=== PATIENT | female | born 1955 | race Caucasian/White ===

== ENCOUNTER → 2016-08-28 | Outpatient (CLI) | payer BC ==
[2016-08-28 13:17] LABS: Basophils # (A) 0.2 k/uL (0-0.2); Basophils % (A) 1 %; CH 30.2; CHCM 33.9; Eosinophils # (A) 0.3 k/uL (0-0.7); Eosinophils % (A) 2 %; HCT 55.2 % (34.0-46.0); HDW 2.62; HGB 18.5 gm/dL (11.4-16.0); Luc # (Auto) 0.28; Luc % (Auto) 2; Lymphocytes # (A) 4.1 k/uL (1.0-4.8); Lymphocytes % (A) 27 %; MCH 30.1 pg (25.0-35.0); MCHC 33.6 g/dL (31.0-37.0); MCV 89.7 fL (80.0-100.0); Mean Platelet Volume 6.4; Monocytes # (A) 1.2 k/uL (0-1.0); Monocytes % (A) 8 %; Neutrophils # (A) 9.1 k/uL (1.3-7.7); Neutrophils % (A) 60 %; RBC 6.16 m/uL (3.80-5.40); RDW 12.6 % (11.5-15.5); WBC 15.2 k/uL (3.8-10.6); WBC (Perox) 13.87
[2016-08-28 13:22] LABS: Prothrombin Time 10.4 sec (9.0-12.0)
[2016-08-28 13:34] LABS: ALT 31 U/L (9-52); AST 24 U/L (14-36); Alkaline Phosphatase 110 U/L (38-126); Anion Gap 13 mmol/L; Blood Urea Nitrogen 17 mg/dL (7-17); Carbon Dioxide 27 mmol/L (22-30); Chloride 100 mmol/L (98-107); Glucose 150 mg/dL (74-99); Non-African American GFR(MDRD) >60 (>60 ml/min/1.73 sqM); Potassium 4.4 mmol/L (3.5-5.1); Sodium 140 mmol/L (137-145); Total Bilirubin 0.7 mg/dL (0.2-1.3); Total Protein 8.1 g/dL (6.3-8.2)
[2016-08-28 14:23] LABS: Hemoglobin A1C 6.8 % (4.2-6.1)
== END | disposition home or self-care (01) ==
LOC: LABPRL 12:43
PROVIDERS: ATTEND Orthopaedic Surgery
DX: Z01.812 Encounter for preprocedural laboratory examination (principal); E11.9 Type 2 diabetes mellitus without complications; M16.12 Unilateral primary osteoarthritis, left hip; Z01.818 Encounter for other preprocedural examination
CPT/HCPCS: 80053; 83036; 85025; 85610; 86850; 86900; 86901; 87070

== ENCOUNTER 2016-09-08 06:15 | Inpatient (IN) | payer BC ==
[2016-08-31 13:09] VITALS: BMI 42.0
--- NOTE | 2016-09-05 13:24 | HP ---
DATE OF ADMISSION: CHIEF COMPLAINT: Left hip pain. HISTORY OF PRESENT ILLNESS: The patient is a 61-year-old retired female who presents with progressive left hip pain for the past several years. She is having pain with any attempt at weight-bearing activities. She does use a cane. She has tried medications with only partial temporary relief. She notes the pain significantly limits her function and activities. PAST MEDICAL HISTORY: Significant for type 2 diabetes, hypertension, hypothyroidism, arthritis and obesity. PAST SURGICAL HISTORY: Significant for partial thyroidectomy, . CURRENT MEDICATIONS: 1. Aleve. 2. Januvia. 3. Levothyroxine. 4. Losartan. She denies drug allergies. FAMILY HISTORY: Significant for heart disease and cancer. SOCIAL HISTORY: Significant for previous tobacco use; however, she quit in 2004. Sixteen-point review of systems otherwise reviewed and is noncontributory. On examination, the patient is a well-developed, well-nourished female of endomorphic habitus. She is approximately 6 feet tall, 310 pounds. HEENT exam is nonfocal. Neck is supple. She is nontender about the lumbar spine. Her passive motion of the left hip is flexion 60 degrees, extension full. With the hip flexed, external rotation is 40 degrees, internal rotation is -20 degrees with pain. Clinically, she has 1 cm shortening of the left lower extremity compared to the right. She walks with an antalgic gait. Her distal neurovascular exam appears be intact in the left lower extremity. Previous x-rays of the left hip obtained in the office show severe hip osteoarthrosis with [id number] changes. IMPRESSION: 1. Left hip severe osteoarthrosis. 2. Increased body mass index. 3. Dkc-pxavazq-myssyxiem diabetes. RECOMMENDATIONS: I talked to the patient at length regarding her treatment options. At this point, she is quite symptomatic and limited because of pain related to her osteoarthrosis. She opts to proceed with surgery. We will plan to proceed with left total hip arthroplasty. We will institute DVT prophylaxis postoperatively. She understands she is at higher risk for complication because of her increased body mass index. She underwent preoperative medical evaluation by Dr. Colby.
[~2016-09-08 06:15] MED LIST: ACETAMINOPHEN TAB 500 MG TAB PO ONE; DEXAMETHASONE SOD PHOSPHATE 10 MG/ML 1 ML VIAL IV ONE; HYDROmorphone 1 MG/ML 1 ML SYRINGE IVP PRN; MELOXICAM 7.5 MG TAB PO ONE; ONDANSETRON 4 MG/2 ML VIAL IVP ONE; TRANEXAMIC ACID 1,000 MG in SODIUM CHLORIDE 0.9% 100 ML IVPB ONE; ceFAZolin 3 GM in SODIUM CHLORIDE 0.9% 100 ML IVPB ONE
[2016-09-08 07:24] LABS: Glucose,Whole Blood 145 mg/dL (75-99)
[2016-09-08] MEDS: LACTATED RINGERS 1,000 ML IV SCH ×2 (07:24→16:33)
[2016-09-08] MEDS ORDERED: MIDAZOLAM 2 MG/2 ML VIAL IV ONE (07:40)
[2016-09-08] MEDS ORDERED: MORPHINE SULFATE (PF) 0.3 MG/0.3 ML SYR ONE (07:59)
[2016-09-08] MEDS ORDERED: TRANEXAMIC ACID 1,000 MG/10 ML VIAL ONE (07:59)
[2016-09-08] MEDS ORDERED: fentaNYL (PF) 50 MCG/ML 2 ML AMP ONE (07:59)
[2016-09-08] MEDS ORDERED: SODIUM CHLORIDE 0.9% 100 ML BAG ONE (07:59)
[2016-09-08] MEDS ORDERED: PROPOFOL 10 MG/ML 20 ML VIAL IV ONE (07:59)
[2016-09-08] MEDS ORDERED: PHENYLEPHRINE-0.9% NACL SYG 1 MG/10 ML SYRINGE ONE (07:59)
[2016-09-08] MEDS ORDERED: MIDAZOLAM 2 MG/2 ML VIAL ONE (07:59)
[2016-09-08] MEDS ORDERED: ceFAZolin 3,000 MG in SODIUM CHLORIDE 0.9% IRRIGATIO 3,000 ML IRRIGATION ONE (08:36)
[2016-09-08] MEDS ORDERED: ONDANSETRON 4 MG/2 ML VIAL IVP PRN (09:54)
[2016-09-08] MEDS ORDERED: traMADol 50 MG TAB PO PRN (09:54)
[2016-09-08] MEDS ORDERED: MAGNESIUM HYDROXIDE 2,400 MG/10 ML CUP PO PRN (09:54)
[2016-09-08] MEDS ORDERED: NALOXONE 0.4 MG/ML 1 ML VIAL IV PRN ×2 (09:54→11:14)
[2016-09-08] MEDS ORDERED: HYDROcodone/APAP 5-325MG 1 EACH TAB PO PRN (09:54)
[2016-09-08] MEDS ORDERED: HYDROmorphone 1 MG/ML 1 ML SYRINGE IVP PRN ×2 (09:54)
--- NOTE | 2016-09-08 10:29 | P.OP ---
Date of Procedure: 09/08/16 Preoperative Diagnosis: Severe left hip osteoarthrosis Postoperative Diagnosis: Same Procedure(s) Performed: Left total hip arthroplasty/lateral approach Implants: Depuy Corail size 11 collared femoral stem, 36 mm +5 cobalt chrome femoral head , 56 mm acetabular shell, neutral polyethylene liner Anesthesia: spinal Surgeon: J Carlos Garay Animal Rides Manager #1: Donavan Cabrera Estimated Blood Loss (ml): 150 Pathology: other (Femoral head) Condition: stable Disposition: PACU Indications for Procedure: The patient is a 61-year-old female who presents with progressive left hip pain secondary to osteoarthrosis spite conservative treatment. A discussion of the risks and benefits of operative intervention versus continued conservative measures was made with the patient. She opted to proceed with surgery. Operative risks to include infection, neurovascular injury, blood clots, fracture, dislocation, leg length discrepancy, and possible need for subsequent procedures was discussed. She was instructed she was at higher risk for complications because of her increased body mass index. Informed consent was obtained. Operative Findings: As below Description of Procedure: The patient was brought to the operating room, and after induction of spinal anesthesia was placed in the lateral decubitus position. The bony prominences were appropriately padded. The pelvis was stabilized perpendicular to the floor with a pegboard. The left lower extremity was prepped and draped in normal fashion. Preoperative templating previously was performed to estimate component positioning and sizes. A longitudinal incision extending approximately 15 cm was then made centered over the greater trochanter extending superiorly to level ASIS and distally in line with the femoral shaft. The skin and subcutaneous tissues were divided sharply. Electrocautery was used for hemostasis. The fascia paula and gluteus vimal fascia was split in line with the skin incision. The muscle fibers were bluntly dissected proximally. A self-retaining retractor was placed. The anterior and posterior margins of the gluteus medius muscles identified in the anterior two thirds detached from the greater trochanter with electrocautery. The gluteus minimus tendon was identified and detached in a similar fashion. A wide capsulotomy was performed. The hip was gently dislocated. A femoral neck osteotomy was made at a 45 shaft with a sagittal saw approximately 1 1/2 cm above the level of the lesser trochanter. The head was then extracted. Attention was then paid towards preparing the acetabular. Retractors were placed anterior and posteriorly. Remaining labral and capsular tissue was debrided sharply clearly defining the acetabular margins. I began reaming with a 49 mm reamer taking care to initially medialize then reaming at 45 of abduction and 20 of anteversion. Sequential reaming is performed up to 55 mm. I was down to bleeding bony surface. A trial 56 mm acetabular shell was inserted in the same orientation and was fully seated. There was good rim fit and stability. The trial component was removed. The final component was inserted again at 45 of abduction and 20 of anteversion. There is good rim fit and stability. I did place one 6.5 mm x 30 mm cancellus screw for additional stability. A neutral polyethylene liner was then inserted. This was impacted. Care was taken to avoid any soft tissue interposition. Attention was then paid towards preparing the proximal femur. A box chisel was used to open the metaphyseal region. A canal finder was used to find the femoral canal. Sequential broaching was performed with the leg perpendicular to the floor in 15 of anteversion. I broached up to a size 11. There was good rotational stability. The standard neck along with a 56 mm +5 head was placed. The hip was gently reduced. It was taken through range of motion. It was stable in flexion and extension with internal and external rotation. I felt there is adequate zoroastrian of soft tissue tension. The hip was gently dislocated. Pulsatile lavage was utilized. The trial components were then removed. The final femoral stem was inserted with the leg perpendicular to the floor in 15 of anteversion. This was fully seated. There is good rotational stability. A 36+5 head was placed. It was gently impacted. The hip was gently reduced. Again it was taken through range of motion and felt to be stable in flexion and extension with internal and external rotation. Pulsatile lavage was again utilized. With the hip in abduction the gluteus minimus and medius tendons reattached the greater trochanter with #2 Ethibond suture. The fascia paula and gluteus vimal fascia was closed in similar fashion. The second dose of IV TXA was given. She did not have much drainage therefore a drain was not placed. The deep subcutaneous tissues were reapproximated with interrupted 0 Vicryl suture. The superficial subcutaneous tissues reapproximated interrupted 2-0 Vicryl sutures. The skin was reapproximated 3-0 subcuticular strata fix suture. Skin tape and adhesive was applied. A sterile dressing was applied. The patient was then awoken from sedation and transferred to recovery room in good condition. Blood loss was estimated at 150 mL. No complications were incurred. Sponge and needle counts were correct at the end the case.
[2016-09-08 10:46] LABS: Glucose,Whole Blood 124 mg/dL (75-99)
[2016-09-08] MEDS ORDERED: KETOROLAC 30 MG/ML 1 ML VIAL IVP ONE (10:55)
--- NOTE | 2016-09-08 10:55 | XR ---
Left hip HISTORY: Postop Single frontal view of the left hip is submitted. There is lucency in the soft tissues. Patient is status post left hip arthroplasty. Alignment is with in normal limits on this single view. IMPRESSION: Orthopedic follow-up
[2016-09-08] MEDS ORDERED: diphenhydrAMINE 50 MG/ML 1 ML VIAL IVP PRN (11:14)
[2016-09-08] MEDS ORDERED: NALBUPHINE 10 MG/ML AMPUL IV PRN (11:14)
[2016-09-08] MEDS ORDERED: MORPHINE SULFATE 4 MG/ML SYRINGE IVP PRN (11:14)
[2016-09-08] MEDS: INSULIN LISPRO (humaLOG) 300 UNIT/3 ML VIAL SQ SCH ×3 (14:18→21:31)
[2016-09-08] MEDS: ceFAZolin 3 GM in SODIUM CHLORIDE 0.9% 100 ML IVPB SCH ×2 (16:32→23:53)
[2016-09-08 16:50] LABS: Glucose,Whole Blood 171 mg/dL (75-99)
[2016-09-08] MEDS: metFORMIN 500 MG TAB PO SCH (18:06)
[2016-09-08] MEDS: HYDROmorphone 1 MG/ML 1 ML SYRINGE IVP PRN ×2 (18:07→23:53)
--- NOTE | 2016-09-08 18:22 | CONS ---
DATE OF CONSULTATION: REASON FOR CONSULTATION: Advice regarding diabetes mellitus, hypertension, and multiple other medical issues, requested by Dr. Garay. HISTORY OF PRESENT ILLNESS: This 61-year-old woman with a past medical history of diabetes, hypertension, hypothyroidism, history of radiation to the thyroid, hysterectomy, being followed by Dr. Colby in the outpatient setting, underwent left total hip joint arthroplasty. There is no history of any fever, rigor, or chills. No history of any headache, loss of consciousness, seizures at this time. PAST MEDICAL HISTORY: 1. Diabetes mellitus. 2. Hypertension. 3. Hypothyroidism. 4. History of radiation to the thyroid. HOME MEDICATIONS: 1. Ultram 50 mg t.i.d. p.r.n. 2. Januvia 100 mg p.o. daily. 3. Metformin 1000 mg p.o. b.i.d. 4. Losartan/hydrochlorothiazide 100/25 mg p.o. daily. 5. Synthroid 137 mcg p.o. daily. 6. Farxiga 10 mg p.o. daily. 7. Xarelto 10 mg p.o. daily. ALLERGIES: RED DYE AND HONEY-BEE VENOM. SOCIAL HISTORY: Occasional alcohol intake. Previous history of smoking. FAMILY HISTORY: History of cancer in the family. REVIEW OF SYSTEMS: ENT: No diminishing hearing. No diminished vision. CARDIOVASCULAR SYSTEM: No angina, palpitations. RESPIRATORY SYSTEM: No cough, hemoptysis. GI: As mentioned earlier. : No dysuria. NERVOUS SYSTEM: No numbness or weakness. ALLERGY/IMMUNOLOGY: No asthma, hayfever. MUSCULOSKELETAL: As mentioned earlier. HEMATOLOGY/ONCOLOGY: No history of anemia. ENDOCRINE: As mentioned earlier. CONSTITUTIONAL: As mentioned earlier. DERMATOLOGY: Negative. RHEUMATOLOGY: As mentioned earlier. PSYCHIATRY: Negative. PHYSICAL EXAMINATION: Patient is alert and oriented x3. Pulse is 102, blood pressure 121/86, respiration 20, temperature normal, pulse ox 94% on room air. HEENT: Conjunctivae normal. Oral mucosa moist. NECK: No jugular venous distention. No carotid bruit. No lymph node enlargement. CARDIOVASCULAR: S1, S2 muffled. No S3. No S4. RESPIRATORY SYSTEM: Breath sounds diminished at the bases. No rhonchi. No crackles. ABDOMEN: Soft, non-tender. No mass palpable. LEGS: Status post left hip arthroplasty. NERVOUS SYSTEM: Higher functions as mentioned earlier. Moves all 4 limbs. No focal motor or sensory deficit. LYMPHATICS: No lymph node palpable in neck, axillae or groin. SKIN: No ulcer, rash, bleeding. LABS: Glucose 145, 124. Otherwise, WBC was 15.2, hemoglobin 18.5. ASSESSMENT: 1. Status post left total hip joint arthroplasty. 2. Diabetes mellitus, type 2. 3. Hypertension, essential. 4. Hypothyroidism. 5. History of radiation to the thyroid. 6. History of hysterectomy. 7. Remote history of nicotine dependence. 8. FULL CODE. 9. Obesity with a body mass index of 24. RECOMMENDATIONS AND DISCUSSION: In this 61-year-old woman who presented with multiple medical problems, I would recommend continuing current medications, continuing insulin scale. Resume the home medications. Incentive spirometry. DVT prophylaxis. Will follow the patient closely with you. Monitor blood pressure closely. Patient may be asked to follow up with Dr. Colby closely. The previous oral medications may be continued once the patient is p.o. Continue with the Losartan/hydrochlorothiazide, also. Repeat labs. Will follow the patient closely you. Thank you, Dr. Garay, for letting us participate in the care of this patient.
[2016-09-08 20:31] LABS: Glucose,Whole Blood 166 mg/dL (75-99)
[2016-09-09] MEDS: SENNOSIDES-DOCUSATE SODIUM 1 EACH TAB PO SCH ×2 (01:36→20:21)
[2016-09-09] MEDS: HYDROmorphone 1 MG/ML 1 ML SYRINGE IVP PRN (03:59)
[2016-09-09] MEDS: LEVOTHYROXINE 137 MCG TAB PO SCH ×2 (05:43→08:10)
[2016-09-09 07:07] LABS: Glucose,Whole Blood 136 mg/dL (75-99)
[2016-09-09] MEDS: INSULIN LISPRO (humaLOG) 300 UNIT/3 ML VIAL SQ SCH ×4 (08:04→22:20)
[2016-09-09] MEDS: HYDROcodone/APAP 5-325MG 1 EACH TAB PO PRN ×2 (08:08→15:04)
[2016-09-09 08:09] LABS: Basophils # (A) 0.1 k/uL (0-0.2); Basophils % (A) 1 %; Eosinophils # (A) 0.1 k/uL (0-0.7); Eosinophils % (A) 1 %; HCT 46.7 % (34.0-46.0); HDW 2.57; Luc # (Auto) 0.33; Luc % (Auto) 3; Lymphocytes % (A) 22 %; MCH 29.7 pg (25.0-35.0); MCHC 32.5 g/dL (31.0-37.0); MCV 91.1 fL (80.0-100.0); Mean Platelet Volume 6.6; Monocytes # (A) 1.5 k/uL (0-1.0); Monocytes % (A) 11 %; Neutrophils # (A) 8.3 k/uL (1.3-7.7); Neutrophils % (A) 63 %; RBC 5.13 m/uL (3.80-5.40); WBC 13.2 k/uL (3.8-10.6); WBC (Perox) 13.44
[2016-09-09] MEDS: LINAGLIPTIN 5 MG TABLET PO SCH (08:09)
[2016-09-09] MEDS: FAMOTIDINE 20 MG TAB PO SCH (08:09)
[2016-09-09] MEDS: metFORMIN 500 MG TAB PO SCH ×2 (08:09→17:38)
[2016-09-09] MEDS: RIVAROXABAN 10 MG TAB PO SCH (08:10)
[2016-09-09] MEDS: LOSARTAN-HCTZ 50-12.5 MG 1 EACH TAB PO SCH (08:10)
[2016-09-09 08:11] LABS: HGB 15.2 gm/dL (11.4-16.0)
--- NOTE | 2016-09-09 10:27 | P.PN ---
Subjective Principal diagnosis: Status post left total hip arthroplasty Patient is seen today resting in her hospital bed, she appears comfortable. She 's been up ambulating with therapy. Her pain is well-controlled. She denies any headaches, lightheadedness, abdominal discomfort, chest pain, shortness of breath. Objective - Vital Signs Vital signs: Vital Signs Temp 98.5 F 09/09/16 07:32 Pulse 96 09/09/16 08:00 Resp 18 09/09/16 08:00 BP 109/64 09/09/16 07:32 Pulse Ox 96 09/09/16 08:05 Intake & Output 09/08/16 09/09/16 09/09/16 18:59 06:59 18:59 Intake Total 1651 750 240 Output Total 810 550 Balance 841 750 -310 Weight 140.61 kg 140.61 kg Intake: IV 1501 Intake, IV Titration 150 500 Amount Lactated Ringers 1,000 ml 150 400 @ 50 mls/hr IV .Q20H [facility] Rx#:[id number] ceFAZolin 3 gm In Sodium 100 Chloride 0.9% 100 ml @ 100 mls/hr IVPB Q8HR [facility]A Rx#:[id number] Oral 250 240 Output: Urine 660 550 Uretheral (Nur) 100 Estimated Blood Loss 150 Other: Voiding Method Indwelling Catheter Indwelling Catheter Indwelling Catheter - Exam Left lower extremity: Incision is clean, dry and intact, minimal ecchymosis present. Minimal soft tissue swelling present in the left leg. Calf is soft, no tenderness with palpation. Plantar flexion, dorsiflexion, EHL, FHL are intact. Dorsal pedis pulses 2+, sensory exam to light touch is intact throughout the extremity. - Labs CBC & Chem 7: 09/09/16 07:03 Labs: Abnormal Lab Results - Last 24 Hours (Table) 09/08/16 09/08/16 09/08/16 Range/Units 10:44 16:48 20:30 WBC (3.8-10.6) k/uL Hct (34.0-46.0) % Neutrophils # (1.3-7.7) k/uL Monocytes # (0-1.0) k/uL POC Glucose (mg/dL) 124 H 171 H 166 H (75-99) mg/dL 09/09/16 09/09/16 Range/Units 06:52 07:03 WBC 13.2 H (3.8-10.6) k/uL Hct 46.7 H (34.0-46.0) % Neutrophils # 8.3 H (1.3-7.7) k/uL Monocytes # 1.5 H (0-1.0) k/uL POC Glucose (mg/dL) 136 H (75-99) mg/dL Assessment and Plan Plan: Assessment: 1. Postop day #1 status post left total hip arthroplasty Plan: 1. Pain control, continue use of oral medication 2. Continue work with therapy 3. Daily dressing changes 4. GI and DVT prophylaxis, continue Xarelto 5. Encourage incentive spirometer 6. Medical recommendations 7. Discharge planning: Patient will be likely discharged home tomorrow Time with Patient: Less than 30
[2016-09-09] MEDS: Dapagliflozin Propanediol [Farxiga] 10 MG PO SCH (11:03)
[2016-09-09 12:24] LABS: Glucose,Whole Blood 166 mg/dL (75-99)
--- NOTE | 2016-09-09 12:34 | P.PN ---
Progress Note - Text Postop day 1 from left hip arthroplasty under spinal anesthesia with intrathecal morphine given for postop pain management. Patient is doing well. Pain is well controlled. On visual analog scale it is 2/10 Mild itching present No nausea or vomiting reported. No Headache or weakness and numbness in the legs. No complications from spinal anesthesia.
[2016-09-09 13:12] LABS: Hemoglobin A1C 6.7 % (4.2-6.1)
[2016-09-09 16:26] LABS: Glucose,Whole Blood 165 mg/dL (75-99)
[2016-09-09] MEDS ORDERED: HYDROcodone/APAP 7.5-325MG 1 EACH TAB PO PRN ×2 (19:35→19:39)
[2016-09-09 20:17] LABS: Glucose,Whole Blood 118 mg/dL (75-99)
[2016-09-09] MEDS: HYDROcodone/APAP 7.5-325MG 1 EACH TAB PO PRN (20:22)
[2016-09-09 21:17] VITALS: RESP 16
[2016-09-09] MEDS: LACTATED RINGERS 1,000 ML IV SCH (22:20)
[2016-09-10] MEDS: HYDROcodone/APAP 7.5-325MG 1 EACH TAB PO PRN ×3 (01:31→11:26)
--- NOTE | 2016-09-10 05:19 | PN ---
DATE OF SERVICE: 09/09/2016 PRESENTING COMPLAINT: Medical management, status post left total hip arthroplasty. INTERVAL HISTORY: This is a patient who is postop day one from a left total hip arthroplasty. Patient is awake, alert, sitting up in the chair just finished a round of physical therapy. Complains of left hip pain. Patient was recently medicated. Patient's appetite is good. Ate her breakfast, ambulating with assistance and physical therapy. No acute complaints. Review of systems done for constitutional, cardiovascular, pulmonary, GI with relevant findings as above. CURRENT MEDICATIONS: [place] 5/325 one tablet p.o. q.4 hours p.r.n., Hyzaar 50/12.5 two tablets p.o. daily, Synthroid 137 mcg p.o. daily, Tradjenta 5 mg p.o. daily, Glucophage 1000 mg p.o. b.i.d. with meals, Nubain 2.5 mg IV q.4 hours p.r.n., Farxiga 10 mg p.o. daily. Xarelto 10 mg p.o. daily, Ultram 50 mg p.o. q.6 hours. PHYSICAL EXAMINATION: VITAL SIGNS: Temperature 98.5, pulse 96, respiratory rate 18, blood pressure 109/64, oxygen saturation 96% on room air. GENERAL APPEARANCE: Patient is awake, sitting in a chair. No acute complaints. EYES: Pupils equal. Conjunctivae normal. NECK: JVD not raised. Mass not palpable. LUNGS: Clear to auscultation bilaterally. RESPIRATORY: Effort normal. CARDIOVASCULAR: First and second sounds noted. No edema. ABDOMEN: Soft, nontender. Bowel sounds x4. Liver and spleen not palpable. PSYCHIATRY: Alert and oriented x3. Mood and affect normal. INVESTIGATIONS: White blood cell count 13.2. Blood glucose 146. Hemoglobin A1c 6.7. ASSESSMENT: 1. Postoperative day one from a left total hip arthroplasty. 2. Diabetes mellitus, type 2, controlled. 3. Hypertension, essential. 4. Hypothyroidism, controlled. 5. Pain secondary to surgical intervention. PLAN: Patient will continue to work with physical therapy postoperatively. Pain medications will be administered for pain management. Diabetes, we will continue the current treatment regimen. Blood pressure continues to be monitored with current medication regimen as well. Tentative discharge plan for or Wednesday. Patient was seen and examined by nurse practitioner, Shanti Rosa, and all elements of the case discussed with the attending, Dr. Champion.
[2016-09-10 06:50] LABS: Glucose,Whole Blood 140 mg/dL (75-99)
[2016-09-10] MEDS: FAMOTIDINE 20 MG TAB PO SCH (07:23)
[2016-09-10] MEDS: metFORMIN 500 MG TAB PO SCH (07:23)
[2016-09-10] MEDS: LINAGLIPTIN 5 MG TABLET PO SCH (07:23)
[2016-09-10] MEDS: RIVAROXABAN 10 MG TAB PO SCH (07:23)
[2016-09-10] MEDS: Dapagliflozin Propanediol [Farxiga] 10 MG PO SCH (07:24)
[2016-09-10] MEDS: LEVOTHYROXINE 137 MCG TAB PO SCH (07:27)
[2016-09-10] MEDS: LOSARTAN-HCTZ 50-12.5 MG 1 EACH TAB PO SCH (07:28)
[2016-09-10] MEDS: INSULIN LISPRO (humaLOG) 300 UNIT/3 ML VIAL SQ SCH ×2 (07:29→11:30)
[2016-09-10 07:34] VITALS: BP 126/67; PULSE 82; TEMP 98.5
--- NOTE | 2016-09-10 09:02 | P.DS ---
Providers Date of admission: 09/08/16 06:15 Expected date of discharge: 09/10/16 Attending physician: J Carlos Garay Consults: 09/08/16 09:54 Consult Physician Routine Consulting Provider: Hola Morejon Consult Reason/Comments: Medical management Do you want consulting provider notified?: Yes Primary care physician: Berry Love [facility] Course: Date of admission: 09/08/2016 Date of discharge: 09/10/2016 Admission diagnosis: Status post left total hip arthroplasty Discharge diagnosis: Same Attending physician: Dr. Garay Surgical procedures: Left total hip arthroplasty Brief history: Patient is a 61-year-old female with a history of with progressive primary left hip osteoarthritis. At this point patient has failed conservative treatment measures and has opted to proceed with a elective left total hip arthroplasty. Hospital course: Details of patient's surgery can be found in operative report. Patient tolerated the procedure well and was subsequently transported to orthopedic floor. Patient's orthopeidc and medical care was provided daily. Patient had daily laboratory tests performed for evaluation of overall blood counts. Patient had daily physical therapy to include strengthening range of motion as well as education with walker ambulation. Patient was treated with Xarelto for their postoperative DVT prophylaxis during their inpatient stay. Patient was noted to have a relatively uneventful postoperative course. Patient reported satisfactory pain control with oral pain medications by postoperative day 0. Patient showed satisfactory progress with physical therapy. Patient moved steadily through the program and had no difficulty meeting the goals by postoperative day 2. Given patient's otherwise satisfactory course and having met physical therapy goals, plan is to discharge patient home on postoperative day 2. Discharge condition/disposition: Patient will be discharged home in stable condition. Discharge medications: Instructions are given on resumption of patient's normal daily medications per primary care recommendation, in addition patient will be prescribed Dexter 7.5 mg/325 mg, Pepcid 20 mg, Colace 100 mg, Xarelto 10 mg . Discharge instructions: 1. Wound care and infection precautions,[keep incision dry and covered while showerin], no lotions, creams, moisturizers. No soaking, tubs, pools, hottubs. Do not scrub over the incision. 2. Weight-bear[as tolerate] with walker / cane until follow-up. 3. Ice and elevate when necessary. Do not exceed 20 minutes per hour with ice pack. 4. Utilize compression sleeve until seen at first follow up appointment. 5. Visiting nursing care. 6. Home physical therapy. 7. Pain meds and anticoagulants per prescription. 8. Pain medication has potential to cause constipation. Increase oral fluid and fiber intake. Contact primary care provider if you have not had a bowel movement within 48 hours after discharge 9. No anti-inflammatory medication until discussed at first post operative visit, this including Motrin, Aleve, Mobic, Diclofenac. 10. Follow up in office at 2 weeks postop with Gonsalo Cabrera PA-C 11. Follow up with your primary care doctor 7-10 days after discharge. 12. Contact [facility] with any questions, . Procedures: Left total hip arthroplasty Patient Condition at Discharge: Good Plan - Discharge Summary New Discharge Prescriptions: New Rivaroxaban [Xarelto] 10 mg PO DAILY #28 tab Docusate [Colace] 100 mg PO DAILY #30 capsule Famotidine [Pepcid] 20 mg PO DAILY #30 tablet HYDROcodone/APAP 7.5-325MG [Dexter 7.5] 1 - 2 each PO Q6HR PRN #60 tab PRN Reason: Pain No Action metFORMIN HCL 1,000 mg PO BID Levothyroxine Sodium [Synthroid] 137 mcg PO DAILY sitaGLIPtin [Januvia] 100 mg PO DAILY traMADol HCL [Ultram] 50 mg PO TID PRN PRN Reason: Pain Losartan/Hydrochlorothiazide [Losartan-Hctz 100-25 mg Tab] 1 tab PO DAILY Dapagliflozin Propanediol [Farxiga] 10 mg PO DAILY Discharge Medication List Dapagliflozin Propanediol [Farxiga] 10 mg PO DAILY 08/31/16 [History] Levothyroxine Sodium [Synthroid] 137 mcg PO DAILY 08/31/16 [History] Losartan/Hydrochlorothiazide [Losartan-Hctz 100-25 mg Tab] 1 tab PO DAILY [History] metFORMIN HCL 1,000 mg PO BID 08/31/16 [History] sitaGLIPtin [Januvia] 100 mg PO DAILY 08/31/16 [History] traMADol HCL [Ultram] 50 mg PO TID PRN 08/31/16 [History] Rivaroxaban [Xarelto] 10 mg PO DAILY #28 tab 09/08/16 [Rx] Docusate [Colace] 100 mg PO DAILY #30 capsule 09/10/16 [Rx] Famotidine [Pepcid] 20 mg PO DAILY #30 tablet 09/10/16 [Rx] HYDROcodone/APAP 7.5-325MG [Dexter 7.5] 1 - 2 each PO Q6HR PRN #60 tab 09/10/16 [ Rx] Follow up Appointment(s)/Referral(s): Donavan Cabrera PAC [PHYSICIAN NURSE ANESTHETIST] - 2 Weeks Activity/Diet/Wound Care/Special Instructions: Orthopedic Discharge Instructions: 1. Wound care and infection precautions, keep incision dry and covered while showering, no lotions, creams, moisturizers. No soaking, pools, hot tubs. Do not scrub over incision. 2. Weight-bear as tolerated with walker / cane until follow-up. 3. Ice and elevate when necessary. Do not exceed 20 minutes per hour with ice pack. 4. Utilize compression sleeve until seen at first follow up appointment. 5. Visiting nursing care. 6. Home physical therapy. 7. Pain meds and anticoagulants per prescription. 8. Pain medication has potential to cause constipation. Increase oral fluid and fiber intake. Contact primary care provider if you have not had a bowel movement within 48 hours after discharge. 9. No anti-inflammatory medication until discussed at first post operative visit, this including Motrin, Aleve, Mobic, Diclofenac. 10. Follow up in office at 2 weeks postop with Gonsalo Cabrera PA-C 11. Follow up with your primary care doctor 7-10 days after discharge. 12. Contact [facility] with any questions, . pt has iesha in pharmacy with a $40.00 co-pay [facility] [phone] set up, will contact patient for first visit appointment time Discharge Disposition: HOME WITH HOME HEALTH SERVICES
--- NOTE | 2016-09-10 10:15 | P.PN ---
Subjective Principal diagnosis: Status post left total hip arthroplasty Patient is seen today resting in her hospital bed, she appears comfortable. She 's been up ambulating with therapy. Her pain is well-controlled. She denies any headaches, lightheadedness, abdominal discomfort, chest pain, shortness of breath. Objective - Vital Signs Vital signs: Vital Signs Temp 98.5 F 09/10/16 07:00 Pulse 82 09/10/16 08:00 Resp 16 09/10/16 08:00 BP 126/67 09/10/16 07:00 Pulse Ox 98 09/10/16 07:00 Intake & Output 09/09/16 09/10/16 09/10/16 18:59 06:59 18:59 Intake Total 1200 Output Total 550 Balance 650 Weight 140.61 kg 140.61 kg Intake: Oral 1200 Output: Urine 550 Uretheral (Nur) 100 Other: Voiding Method Indwelling Catheter Toilet Toilet # Voids 1 1 - Exam Left lower extremity: Incision is clean, dry and intact, minimal ecchymosis present. Minimal soft tissue swelling present in the left leg. Calf is soft, no tenderness with palpation. Plantar flexion, dorsiflexion, EHL, FHL are intact. Dorsal pedis pulses 2+, sensory exam to light touch is intact throughout the extremity. - Labs CBC & Chem 7: 09/09/16 07:03 Labs: Abnormal Lab Results - Last 24 Hours (Table) 09/09/16 09/09/16 09/09/16 Range/Units 07:03 12:21 16:24 POC Glucose (mg/dL) 166 H 165 H (75-99) mg/dL Hemoglobin A1c 6.7 H (4.2-6.1) % 09/09/16 09/10/16 Range/Units 20:14 06:49 POC Glucose (mg/dL) 118 H 140 H (75-99) mg/dL Hemoglobin A1c (4.2-6.1) % Assessment and Plan Plan: Assessment: 1. Postop day #2 status post left total hip arthroplasty Plan: 1. Pain control, continue use of oral medication 2. Continue work with therapy 3. Daily dressing changes 4. GI and DVT prophylaxis, continue Xarelto 5. Encourage incentive spirometer 6. Medical recommendations 7. Discharge planning: Patient will be discharged home today Time with Patient: Less than 30
--- NOTE | 2016-09-10 11:28 | PN ---
DATE OF SERVICE: 09/09/2016 ATTENDING NOTE: The patient was seen and examined by me on 09/09/2016. I reviewed the note of my nurse practitioner, Ms. Rosa. Discussed, additional note as below. Patient is status post left total hip arthroplasty, doing well, did well with physical therapy, pain is control, tolerating a diet with chest pain. On examination, afebrile, blood pressure 101/64. Lungs are clear. CARDIOVASCULAR: First and second sounds are normal. ASSESSMENT: 1. Diabetes mellitus type 2, controlled. 2. Essential hypertension. 3. Left total hip arthroplasty. PLAN: Continue current medication and treatment plan. Medically doing better.
[2016-09-10 11:35] LABS: Glucose,Whole Blood 127 mg/dL (75-99)
--- NOTE | 2016-09-10 15:06 | PN ---
DATE OF SERVICE: 09/10/2016 PRESENTING COMPLAINT: Medical management, status post left total hip arthroplasty. INTERVAL HISTORY: This is a patient who is postop day 2 from a left total hip arthroplasty. Patient is awake, alert, sitting up in the chair. Patient states she had uncontrolled pain overnight and was very emotional. However, she feels much better today. Pain is well controlled. Appetite is good. Ambulating with assistance and participating with physical therapy. Review of systems done for constitutional, cardiovascular, pulmonary and GI with relevant findings as above. CURRENT MEDICATIONS: [place] 5/325 one tablet p.o. q.4 hours p.r.n., Hyzaar 50/12.5 two tablets p.o. daily, Synthroid 137 mcg p.o. daily, Tradjenta 5 mg p.o. daily, Glucophage 1000 mg p.o. b.i.d. with meals, Nubain 2.5 mg IV q.4 hours p.r.n., Farxiga 10 mg p.o. daily, Xarelto 0 mg p.o. daily, Ultram 50 mg p.o. q.6 hours. PHYSICAL EXAM: VITAL SIGNS: Temperature 98.5, pulse 82, respirations 16, blood pressure 126/67, oxygen saturation 98% on room air. GENERAL APPEARANCE: Patient is awake and alert. No acute distress noted or voiced. EYES: Pupils equal. Conjunctivae are normal. NECK: JVD not raised. Mass not palpable. LUNGS: Clear to auscultation throughout all lung mendoza. RESPIRATORY: Effort normal. CARDIOVASCULAR: First and second sounds noted. Trace edema to operative site. ABDOMEN: Soft, nontender. Liver and spleen not palpable. MUSCULOSKELETAL: Plantar and dorsiflexion intact on left foot. PSYCHIATRY: Alert and oriented x3. Mood and affect are normal. INVESTIGATIONS: Blood glucose 140. ASSESSMENT: 1. Postoperative day 2 from a left total hip arthroplasty. 2. Diabetes mellitus type 2, controlled. 3. Hypertension, essential. 4. Hypothyroidism, controlled. 5. Pain is secondary to surgical intervention. PLAN: Patient will continue to work with physical therapy postoperatively. Pain medications will be administered for pain management as well as dictated by Orthopedics. Diabetes, will continue the current treatment regimen. Patient is planned for discharge home today with home care per Orthopedics. Patient was seen and examined by nurse practitioner, Shanti Rosa and all elements of the case discussed with attending, Dr. Champion.
--- NOTE | 2016-09-11 15:16 | PN ---
DATE OF SERVICE: 09/10/2016 ATTENDING NOTE: This patient was seen and examined by me on 09/10/16. I reviewed the note of my nurse practitioner, Ms. Rosa. Discussed. Additional findings below. Patient is status post left hip surgery, doing much better, comfortable, working with therapy. No chest pain or shortness of breath. On exam, lungs are clear. CARDIOVASCULAR: First and second sounds normal. ASSESSMENT: Status post left hip surgery. Other medical issues are stable. Labs are reviewed. Patient is to follow up with his family doctor when discharged.
== END 2016-09-10 13:05 | disposition home health service (06) | DRG 470 ==
LOC: 2ORMAIN 06:15 → 3SUR 10:00
PROVIDERS: ADMIT Orthopaedic Surgery; ATTEND Orthopaedic Surgery
PROC: 0SRB02A Replacement of Left Hip Joint with Metal on Polyethylene Synthetic Substitute, Uncemented, Open Approach (ICD-10-PCS; principal; 2016-09-08 08:00)
DX: M16.12 Unilateral primary osteoarthritis, left hip (principal); E66.9 Obesity, unspecified; I10 Essential (primary) hypertension; E03.9 Hypothyroidism, unspecified; E11.9 Type 2 diabetes mellitus without complications; Z79.01 Long term (current) use of anticoagulants; Z79.84 Long term (current) use of oral hypoglycemic drugs; Z87.891 Personal history of nicotine dependence; Z92.3 Personal history of irradiation; Z79.899 Other long term (current) drug therapy; Z68.24 Body mass index [BMI] 24.0-24.9, adult
CPT/HCPCS: 73501; 83036; 85025; 86850; 86900; 86901; 88300; 94760